=== PATIENT | female | born 1995 | race Caucasian/White ===

== ENCOUNTER 2017-07-28 10:24 | Emergency (ER) | payer SELFPAY ==
[2017-07-28] MEDS ORDERED: IBUPROFEN 400 MG TAB ONE (11:25)
--- NOTE | 2017-07-28 11:44 | RAD REPORT ---
EXAM DESCRIPTION: RAD - Knee Right 3 View - 07/28/2017 11:08 am CLINICAL HISTORY: Trip and fall, knee pain COMPARISON: None. FINDINGS: No fracture, dislocation or periosteal reaction.No joint effusion seen. No joint space david rowing. No foreign body or other soft tissue abnormality. Clinical concerns for internal derangement or occult bony injury could be further assessed with MR im aging. IMPRESSION: Negative right knee.
--- NOTE | 2017-07-28 12:01 | EDPHYS ---
Physician Documentation [facility] Name: Evie Gunderson Age: 22 yrs Sex: Female : 1995 Arrival Date: 07/28/2017 Time: 10:27 Bed 18 Private MD: ED Physician Isak Escobar HPI: 07/28 11:21 This 22 yrs old Female presents to ER via Ambulatory with complaints of Leg cp Injury. 11:21 The patient presents with an injury, pain, that is acute. The complaints affect the cp medial aspect of right knee. Context: resulted from the patient tripping, on the edge of a carpet, the patient is not able to bear weight, must have assistance. Onset: The symptoms/episode began/occurred last night. 11:21 Associated signs and symptoms: Pertinent positives: weakness, Pertinent negatives calf cp tenderness, fever, numbness, tingling. Treatment prior to arrival includes: no previous treatment. 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 - Social history:: Smoking status: Patient/guardian denies using tobacco. ROS: 11:25 Constitutional: Negative for body aches, chills, fever, poor PO intake. cp 11:25 Eyes: Negative for injury, pain, redness, and discharge. cp 11:25 ENT: Negative for drainage from ear(s), ear pain, sore throat, difficulty swallowing, difficulty handling secretions. 11:25 Cardiovascular: Negative for chest pain, palpitations. 11:25 Respiratory: Negative for cough, shortness of breath, wheezing. 11:25 Abdomen/GI: Negative for abdominal pain, nausea, vomiting, and diarrhea. 11:25 MS/extremity: Positive for pain, swelling, tenderness, of the right knee, Negative for paresthesias. 11:25 Neuro: Negative for altered mental status, headache, numbness, tingling. 11:25 All other systems are negative. Exam: 11:30 Constitutional: The patient appears in no acute distress, alert, awake, well developed, cp well nourished. 11:30 Head/Face: Normocephalic, atraumatic. cp 11:30 Eyes: Periorbital structures: appear normal, Sclera: no appreciated abnormality, Lids and lashes: appear normal, bilaterally. 11:30 ENT: External ear(s): are unremarkable, Nose: is normal, Mouth: is normal, Posterior pharynx: is normal, airway is patent. 11:30 Chest/axilla: Inspection: normal, Palpation: is normal, no crepitus. 11:30 Cardiovascular: Rate: normal, Rhythm: regular. 11:30 Respiratory: the patient does not display signs of respiratory distress, Respirations: normal, no use of accessory muscles, no retractions, no splinting, no tachypnea. 11:30 Abdomen/GI: Exam negative for discomfort, distension, guarding, Inspection: abdomen appears normal. 11:30 Musculoskeletal/extremity: Joints: All joints are normal except the right knee displays painful range of motion, swelling, tenderness. 11:30 Skin: cellulitis, is not appreciated, no rash present. Vital Signs: 10:39 BP 121 / 78; Pulse 92; Resp 18; Temp 98.3(TE); Pulse Ox 100% on R/A; Weight 77.11 kg; hj Height 5 ft. 7 in. (170.18 cm); Pain 7/10; 11:18 BP 124 / 69; Pulse 86; Resp 18; Pulse Ox 100% on R/A; ae1 10:39 Body Mass Index 26.63 (77.11 kg, 170.18 cm) hj MDM: 10:49 Patient medically screened. cp 11:30 Differential diagnosis: dislocation, closed fracture, ligament injury. cp 12:00 Data reviewed: vital signs, nurses notes, radiologic studies, plain films. cp 12:00 Test interpretation: by ED physician or midlevel provider: plain radiologic studies. cp Counseling: I had a detailed discussion with the patient and/or guardian regarding: the historical points, exam findings, and any diagnostic results supporting the discharge/admit diagnosis, radiology results, the need for outpatient follow up, a orthopedic surgeon. 07/28 10:41 Order name: XRAY Knee RIGHT 3 view; Complete Time: 12:00 hj 07/28 12:02 Order name: Knee Immobilizer; Complete Time: 12:14 cp 07/28 12:02 Order name: Crutches; Complete Time: 12:14 cp 07/28 12:02 Order name: Lee wrap-joint; Complete Time: 12:14 cp Administered Medications: 11:27 Drug: Ibuprofen 800 mg Route: PO; ae1 12:25 Follow up: Response: Pain is decreased ae1 Disposition: 14: Co-signature as Attending Physician, Isak Escobar MD. Disposition: 07/28/17 12:01 Discharged to Home. Impression: Sprain of other specified parts of right knee. - Condition is Stable. - Discharge Instructions: Knee Sprain. - Prescriptions for Ibuprofen 800 mg Oral Tablet - take 1 tablet by ORAL route every 8 hours As needed take with food; 30 tablet. - Medication Reconciliation Form, Thank You Letter, Antibiotic Education, Prescription Opioid Use, Work release form form. - Follow up: Michael Pang MD; When: 2 - 3 days; Reason: Recheck today's complaints. - Problem is new. - Symptoms are unchanged. Signatures: Dispatcher [employer] EDMS Gordo Matamoros RN RN Joseluis Viveros PA PA cp Terry Tineo RN RN ae1 Isak Escobar MD MD Corrections: (The following items were deleted from the chart) 12:36 12:01 07/28/2017 12:01 Discharged to Home. Impression: Sprain of other specified parts ae1 of right knee. Condition is Stable. Forms are Medication Reconciliation Form, Thank You Letter, Antibiotic Education, Prescription Opioid Use. Follow up: Michael Pang; When: 2 - 3 days; Reason: Recheck today's complaints. Problem is new. Symptoms are unchanged. cp
--- NOTE | 2017-07-28 12:01 | ER ---
Nurse's Notes [facility] Name: Evie Gunderson Age: 22 yrs Sex: Female : 1995 Arrival Date: 07/28/2017 Time: 10:27 Bed 18 Private MD: Diagnosis: Sprain of other specified parts of right knee Presentation: 07/28 10:37 Presenting complaint: Patient states: last night, i tripped and fell on a rug, and hurt hj my R knee, now its swollen; denies hitting head and LOC;. Transition of care: patient was not received from another setting of care. Onset of symptoms was July 28, 2017. Initial Sepsis Screen: Does the patient meet any 2 criteria? No. Patient's initial sepsis screen is negative. Does the patient have a suspected source of infection? No. Patient's initial sepsis screen is negative. Care prior to arrival: None. 10:37 Method Of Arrival: Ambulatory 10:37 Acuity: AWA 4 hj Triage Assessment: 10:39 General: Appears in no apparent distress. uncomfortable, Behavior is calm, cooperative, hj appropriate for age. Pain: Complains of pain in right knee Pain currently is 7 out of 10 on a pain scale. Musculoskeletal: Reports pain in right knee. QM NURSE: 10:39 LMP 07/09/2017 Historical: - Allergies: 10:39 No Known Allergies; hj - Home Meds: 10:39 None [Active]; hj - PMHx: 10:39 None; hj - PSHx: 10:39 Ear Tubes; hj - Immunization history:: Adult Immunizations up to date. - Social history:: Smoking status: Patient/guardian denies using tobacco. Screenin:22 Abuse screen: Denies threats or abuse. Nutritional screening: No deficits noted. ae1 Tuberculosis screening: No symptoms or risk factors identified. Fall Risk None identified. Assessment: 11:21 General: Appears in no apparent distress. comfortable, Behavior is calm, cooperative. ae1 Pain: Complains of pain in right knee Aggravated by weight bearing. Neuro: Level of Consciousness is awake, alert, obeys commands, Oriented to person, place, time, situation. Cardiovascular: Patient's skin is warm and dry. Respiratory: Airway is patent Respiratory effort is even, unlabored, Respiratory pattern is regular, symmetrical. GI: No signs and/or symptoms were reported involving the gastrointestinal system. : No signs and/or symptoms were reported regarding the genitourinary system. EENT: No signs and/or symptoms were reported regarding the EENT system. Derm: Skin is pink, warm \T\ dry. Musculoskeletal: Swelling present in right knee. Injury Description: fall. Vital Signs: 10:39 BP 121 / 78; Pulse 92; Resp 18; Temp 98.3(TE); Pulse Ox 100% on R/A; Weight 77.11 kg; hj Height 5 ft. 7 in. (170.18 cm); Pain 7/10; 11:18 BP 124 / 69; Pulse 86; Resp 18; Pulse Ox 100% on R/A; ae1 10:39 Body Mass Index 26.63 (77.11 kg, 170.18 cm) ED Course: 10:27 Patient arrived in ED. rg4 10:38 Triage completed. hj 10:39 Arm band placed on right wrist. hj 10:49 Joseluis Viveros PA is PHCP. cp 10:49 Isak Escobar MD is Attending Physician. cp 10:56 Terry Tineo RN is Primary Nurse. ae1 11:00 X-ray completed. Portable x-ray completed in exam room. Patient tolerated procedure jb2 well. 11:04 XRAY Knee RIGHT 3 view In Process Unspecified. EDMS 11:22 Placed in gown. Bed in low position. Call light in reach. Side rails up X 1. Pulse ox ae1 on. NIBP on. 12:00 Michael Pang MD is Referral Physician. cp 12:25 No provider procedures requiring assistance completed. Patient did not have IV access ae1 during this emergency room visit. Administered Medications: 11:27 Drug: Ibuprofen 800 mg Route: PO; ae1 12:25 Follow up: Response: Pain is decreased ae1 Outcome: 12:01 Discharge ordered by . cp 12:25 Discharged to home ambulatory, with crutches. ae1 12:25 Condition: stable 12:25 Discharge instructions given to patient, Instructed on discharge instructions, follow up and referral plans. medication usage, Demonstrated understanding of instructions, Prescriptions given X 1. 12:36 Patient left the ED. ae1 Signatures: Dispatcher [employer] EDNV Charles Mercado jb2 Gordo Matamoros RN RN Joseluis Hernandez PA PA cp Elliott, Andrea, RN RN ae1 Sneha Figueroa rg4 Corrections: (The following items were deleted from the chart) 10:42 10:39 Pulse 92bpm; Resp 18bpm; Pulse Ox 100% RA; Temp 98.3F Temporal; 77.11 kg; Height hj 5 ft. 7 in.; BMI: 26.6; Pain 7/10; hj
== END 2017-07-28 12:36 | disposition home or self-care (01) ==
LOC: ER 10:24
DX: S83.8X1A Sprain of other specified parts of right knee, initial encounter (principal); W18.09XA Striking against other object with subsequent fall, initial encounter; Y93.89 Activity, other specified; Y92.9 Unspecified place or not applicable
CPT/HCPCS: 99284